=== PATIENT | male | born 1965 | race Two or more races ===

== ENCOUNTER 2016-09-02 13:12 | Emergency (ER) | payer OTHER ==
[~2016-09-02] VITALS: Ht 185.4 cm; Wt 77.1 kg
[2016-09-02 12:55] VITALS: BP 146/72
--- NOTE | 2016-09-02 13:55 | Emergency Room Report ---
History of Present Illness General Chief Complaint: Abdominal Pain Source: EMS Present Illness HPI 51-year-old male presents emergency department complaining of nausea, vomiting and diarrhea since this a.m. Patient reports intermittent cramping abdominal pain rated as that of 10 in severity. Patient states that he "Ate Bad food. " Denies fevers or chills. Patient denies blood in the vomit or stool. Patient denies alcohol or drug use. Denies past medical history. History of present illness and ROS are limited due to poor patient cooperation. Allergies: Coded Allergies: No Known Allergies (Unverified , 09/02/16) Patient History Past Medical History: see triage record Past Surgical History: none Pertinent Family History: none Reviewed Nursing Documentation: PMH: Agreed, PSxH: Agreed Nursing Documentation-PMH Past Medical History: No History, Except For History Of Psychiatric Problem: Yes Review of Systems All Other Systems: limited - pt is poorly cooperative. Physical Exam Vital Signs Date Time Temp Pulse Resp B/P Pulse Ox O2 Delivery O2 Flow Rate FiO2 09/02/16 12:55 98.8 62 18 146/72 99 Room Air Sp02 EP Interpretation: reviewed, normal General Appearance: alert, GCS 15, non-toxic, mild distress - actively gagging/ vomiting., thin, other - desheveled, and poor hygiene Head: normocephalic, atraumatic Eyes: bilateral eye PERRL, bilateral eye normal inspection ENT: hearing grossly normal, normal pharynx, no angioedema, normal voice Neck: full range of motion Respiratory: lungs clear, normal breath sounds Cardiovascular #1: regular rate, rhythm, no edema Gastrointestinal: normal bowel sounds, non tender, soft, no guarding, no rebound, other - hyperactive bowel sounds in all 4 quadrants, no appreciable TTP noted. Rectal: deferred Musculoskeletal: back normal, gait/station normal, normal range of motion, non- tender Neurologic: alert, oriented x3, responsive, motor strength/tone normal, sensory intact, speech normal Psychiatric: judgement/insight normal, memory normal, mood/affect normal Skin: normal color, no rash, warm/dry, well hydrated Medical Decision Making PA Attestation Dr. Figueroa is my supervising Physician whom patient management has been discussed with. Diagnostic Impression: Primary Impression: Gastroenteritis ER Course Pt. presents to the ED c/oN/V/D x 1 day. Ddx considered but are not limited to GE, colitis, acute appendicitis, SBO, infectious diarrhea, dehydration Vital signs: pt. is afebrile, VS WNL and stable- do not indicate hypovolemia. H&PE are most consistent with GE ORDERS: none required at this time, the diagnosis is clinical ED INTERVENTIONS: -4mg PO Zofran -10mg Bentyl PO -Pt had bowel movement while in ED chair, noted to be non-bloody stool. -Pt allowed to rest. - Oral fluid challenge: pt. is able to tolerate oral fluids, and was able to keep down medication to help slow bowel movements. - Pt is given a list of homeless resources, and transitional housing, in addition to free primary health care clinics for follow up. DISCHARGE: At this time pt. is stable for d/c to home. Will provide printed patient care instructions, and any necessary prescriptions. Care plan and follow up instructions have been discussed with the patient prior to discharge. Last Vital Signs Date Time Temp Pulse Resp B/P Pulse Ox O2 Delivery O2 Flow Rate FiO2 09/02/16 12:55 98.8 62 18 146/72 99 Room Air Disposition: HOME, SELF-CARE Condition: Stable Scripts Dicyclomine Hcl* (BENTYL*) 10 Mg Capsule 10 MG ORAL FOUR TIMES A DAY for 2 Days, #8 CAP Prov: Aleena Ngo 09/02/16 Ondansetron Odt* (ZOFRAN ODT*) 4 Mg Tab.rapdis 4 MG ORAL Q6H Y for Nausea & Vomiting, #20 TAB Prov: Aleena Ngo 09/02/16 Patient Instructions: Viral Gastroenteritis, Adult Additional Instructions: Take medications as directed. Follow up with PCP in 3-5 days Return sooner to ED if new symptoms occur, or current symptoms become worse. - Please note that this Emergency Department Report was dictated using [employer] facilitator technology software, occasionally this can lead to erroneous entry secondary to interpretation by the dictation equipment. Aleena Ngo September 02, 2016 13:55
[2016-09-02] MEDS ORDERED: ZOFRAN ODT4 MG ORAL (15:13)
[2016-09-02] MEDS ORDERED: BENTYL10 MG ORAL (15:13)
[2016-09-02] MEDS ORDERED: Dicyclomine HCl 10mg/5ml oral soln ORAL ONE (15:15)
[2016-09-02 16:00] VITALS: BP 139/70
== END 2016-09-02 16:10 | disposition home or self-care (01) ==
LOC: EDBD 13:12 → EMR 13:30
DX: K52.9 Noninfective gastroenteritis and colitis, unspecified (principal)
CPT/HCPCS: 99284